=== PATIENT | female | born 1990 | race Caucasian/White ===

== ENCOUNTER 2018-10-23 09:36 | Outpatient (CLI) | payer BC ==
--- NOTE | 2018-10-23 10:58 | ULT ---
RIGHT BREAST ULTRASOUND: LEFT BREAST ULTRASOUND: HISTORY: A 28-year-old female with a breast lump. TECHNIQUE: Bilateral breast ultrasound was performed. FINDINGS: There is ductal ectasia noted bilaterally without intraductal mass. There is a 5 mm cyst at the 6 o'clock position of the left breast, 3 cm from the nipple. IMPRESSION: BI-RADS category 2-Benign findings. Age appropriate mammographic screening is recommended, based on risk factors and clinical findings. POS: SUSAN
== END 2018-10-23 09:37 | disposition home or self-care (01) ==
LOC: BICULT 09:36
PROVIDERS: ATTEND Physician Assistant
DX: N63.10 Unspecified lump in the right breast, unspecified quadrant (principal)

== ENCOUNTER 2019-02-27 14:13 | Outpatient (CLI) | payer BC ==
--- NOTE | 2019-02-27 15:55 | ULT ---
LEFT LOWER EXTREMITY VENOUS DOPPLER WITH SPECTRAL ANALYSIS AND COLOR FLOW EVALUATION: 02/27/19 HISTORY: Left lower extremity edema. History of prior DVT. Patient currently on Coumadin. COMPARISON: 06/19/17. FINDINGS: Ham scale, color flow, Doppler evaluation, and spectral analysis of the left lower extremity venous structures is performed with 2D imaging. The left lower extremity common femoral, superficial femoral , popliteal, posterior tibial, most proximal greater saphenous and profunda femoral veins are image d. There is normal lumen compressibility, flow and augmentation of the visualized deep venous structures left lower extremity. There has been no interval change compared to prior study in 2017. IMPRESSION: No evidence of a DVT involving the visualized deep venous structures left lower extremity. POS: DANI
== END 2019-02-27 14:14 | disposition home or self-care (01) ==
LOC: SCSULT 14:13
PROVIDERS: ATTEND Family Medicine
DX: R60.9 Edema, unspecified (principal)